=== PATIENT | female | born 2000 | race Caucasian/White ===

== ENCOUNTER 2021-08-27 20:17 | Emergency (ER) | payer MEDICAID, SELFPAY ==
--- NOTE | ~2021-08-27 | XR_ITS ---
EXAMINATION: XR CHEST CLINICAL INFORMATION: Chest pain COMPARISON: Chest radiograph 08/19/2017, report only TECHNIQUE: 2 views of the chest were obtained. FINDINGS: No significant abnormality is noted involving the heart, lungs, mediastinum, bony thorax or soft tissues. XR/XR chest 2V IMPRESSION: Unremarkable examination.
--- NOTE | 2021-08-27 20:27 | ECG_ITS ---
Test Reason : CHEST PAIN Blood Pressure : / mmHG Vent. Rate : 103 BPM Atrial Rate : 103 BPM P-R Int : 154 ms QRS Dur : 078 ms QT Int : 326 ms P-R-T Axes : 057 048 032 degrees QTc Int : 427 ms Sinus tachycardia Low voltage QRS Borderline ECG No previous ECGs available Referred By: Generic ED Physician Electronically Signed By:WILIAM RUBIO
[2021-08-27 20:49] VITALS: BP 103/71; PULSE 108; RESP 14; TEMP 36.3; O2SAT 99; BMI 24.7
[2021-08-27 21:23] LABS: COVID-19 Test Negative (Negative); IDNOW Serial# 16C4AD1C
[2021-08-27 21:24] LABS: Influenza A Negative (Negative); Influenza B2 Negative (Negative)
--- NOTE | 2021-08-27 23:45 | ED.GENADULT ---
HPI - General Adult General Chief complaint: General Medical Stated complaint: sore throat, chest pain, mucus Time Seen by Provider: 08/27/21 23:45 Source: patient Mode of arrival: ambulatory Limitations: no limitations History of Present Illness HPI narrative: Patient Been complaining of sore throat nasal congestion for last 2 -3 days getting worse with cough with mucopurulent phlegm no fever no chills no other family member sick no shortness of Related Data Previous Rx's Medication Instructions Recorded amoxicillin 875 mg-potassium 1 tab PO BID #20 tabs 08/27/21 clavulanate 125 mg tablet benzonatate 200 mg capsule 200 mg PO TID PRN cough #20 caps 08/27/21 Allergies Allergy/AdvReac Type Severity Reaction Status Date / Time No Known Allergies Allergy Unverified 11/12/19 17:06 [No Known Allergies*] Review of Systems Review of Systems: Yes all other systems are reviewed and are negative PMFSH Social History Social History Patient Tobacco Use Status: Never used Tobacco Use of substances other than those prescribed or required for medical reasons: No Advance Directives: No Advance Directives Information Provided: No Physical Exam ED Vital Signs: Vital Signs - 24 hr 08/27/21 20:49 08/28/21 00:09 Temperature 97.4 F Pulse Rate 108 H 89 Respiratory Rate 14 Blood Pressure 103/71 120/64 Pulse Oximetry 99 Oxygen Delivery Method Room Air BMI result Body Mass Index 24.7 Appearance: Alert. Oriented X3. No acute distress. ENT: Oral Mucosa moist slightly erythematous pharynx Neck: Normal inspection. Neck supple. CVS: Normal heart rate and rhythm. Pulses normal. Respiratory: No respiratory distress. Equal air entry bilateral, no wheezing/rales/rhonchi Abdomen: Soft and nontender. Bowel sounds are present, Skin: Skin warm and dry. Normal skin color. Normal skin turgor. Extremities: No lower extremity edema. No calf tenderness Medical Decision Making Lab Data Lab results reviewed: Yes I reviewed the patient's lab results. Labs: Lab Results 08/27/21 08/27/21 Range/Units 20:36 20:36 COVID-19 (MANUEL) Negative (Negative) COVID-19 Clin Com See Note Influenza Type A (BRIANNE) Negative (Negative) Influenza Type B (BRIANNE) Negative (Negative) Influenza A & B Note See Note Discharge Plan Discharge Clinical Impression: Acute bronchitis Patient Disposition: Home, Self-Care Instructions: Acute Bronchitis (ED) Additional Instructions: Drink plenty of fluids Antibiotic as prescribed Follow with PCP as needed Prescriptions: New benzonatate 200 mg capsule 200 mg PO TID PRN (Reason: cough) Qty: 20 0RF amoxicillin-pot clavulanate 875-125 mg tablet 1 tab PO BID Qty: 20 0RF Interventions: ED Discharge Assessment Last Done: 08/28/21 00:19
[2021-08-28] MEDS: Benzonatate 100 MG CAPSULE 200 MG PO (00:07)
[2021-08-28] MEDS: Amoxicillin/Potassium Clav 875 MG TABLET PO (00:08)
[2021-08-28 00:09] VITALS: BP 120/64; PULSE 89
--- NOTE | 2021-08-28 00:13 | PC.NURSE ---
pt a&o, no sob or chest pain . Reviewed discharge instructions with pt. pt verbalized understanding.
== END 2021-08-28 00:19 | disposition home or self-care (01) ==
PROVIDERS: Emergency Provider Internal Medicine; PCP Internal Medicine
DX: J20.9 Acute bronchitis, unspecified (principal); J02.9 Acute pharyngitis, unspecified; R07.89 Other chest pain; R05.9 Cough, unspecified; Z20.822 Contact with and (suspected) exposure to COVID-19; Z79.899 Other long term (current) drug therapy
CPT/HCPCS: 71046; 87502; 87635; 93005; 99283; 99284

== ENCOUNTER 2022-11-08 09:39 | Emergency (ER) | payer OTHER, SELFPAY ==
[2022-11-08 09:43] VITALS: BP 128/80; PULSE 90; RESP 17; TEMP 36.6; O2SAT 99; BMI 21.9
== END 2022-11-08 11:31 | disposition left against medical advice (07) ==
PROVIDERS: Emergency Provider Emergency Medicine
DX: M54.2 Cervicalgia (principal)
CPT/HCPCS: 99281